=== PATIENT | female | born 1960 | race Caucasian/White ===

== ENCOUNTER 2023-01-25 07:45 | Emergency (ER) | payer OTHER ==
[~2023-01-25] VITALS: Ht 160 cm; Wt 73.6 kg
[2023-01-25 08:12] LABS: BASOPHILS 2.7 % (0-2); EOSINOPHILS 1.8 % (0-6); HEMATOCRIT 38.9 % (35.0-50.0); HEMOGLOBIN 12.5 g/dL (12.0-18.0); LYMPHOCYTES 15.9 % (24-44); MCHC 32.1 g/dl (30-36); MCV 80.8 fl (81-99); MONOCYTES 6.8 % (0-12); NEUTROPHILS 72.8 % (39-80); PLATELET COUNT 263 K/uL (140-440); RBC 4.81 M/ul (4.3-5.7); RDW 14.3 (10.5-15.0)
[2023-01-25 08:26] LABS: ALBUMIN 3.5 g/dL (3.4-5.0); ALBUMIN/GLOBULIN RATIO 0.83 (1.1-2.4); ANION GAP 14.7 (7-21); BILIRUBIN, TOTAL 0.4 ng/dL (0.2-1.0); BUN/CREATININE RATIO 23.68 (6.0-28.6); CALCIUM 9.4 mg/dL (8.5-10.1); CREATININE, SERUM 0.76 mg/dL (0.55-1.02); POTASSIUM 3.7 mmol/L (3.5-5.1); PROTEIN, TOTAL 7.7 g/dL (6.4-8.2)
[2023-01-25 09:02] LABS: INFLUENZA B NAA NEGATIVE (NEGATIVE); RESPIRATORY SYNCYTIAL VIR NAA NEGATIVE (NEGATIVE)
[2023-01-25] MEDS ORDERED: PREDNISONE20 MG PO (09:32)
[2023-01-25] MEDS ORDERED: VENTOLIN HFA18 GM INH (09:38)
[2023-01-25 10:40] VITALS: BP 108/64
== END 2023-01-25 10:35 | disposition home or self-care (01) ==
LOC: ED 07:45
PROVIDERS: Emergency Medicine
DX: J06.9 Acute upper respiratory infection, unspecified (principal); R06.1 Stridor; Z20.822 Contact with and (suspected) exposure to COVID-19
CPT/HCPCS: 36415; 71045; 80053; 85025; 87502; 94640; A9270; C9803; J1100; U0002

== ENCOUNTER 2024-02-27 12:50 | Day surgery (SDC) | payer OTHER ==
[~2024-02-27] VITALS: Ht 160 cm; Wt 70.8 kg
--- NOTE | ~2024-02-27 | OR ---
[facility] [address], [place] [address] Draft DATE OF OPERATION: 02/27/2024 SURGEON: Oneyda Carpio MD PREOPERATIVE DIAGNOSIS: Positive Cologuard test. POSTOPERATIVE DIAGNOSES: 1. Small polyp cecum. 2. Minimal diverticula of sigmoid. PROCEDURE: Total colonoscopy to cecum with cold morcellation polypectomy x1. ANESTHESIA: Intravenous sedation; fentanyl 150 mcg, Versed 6 mg. INDICATION: This 63-year-old white woman is a patient of DAMI Reece. She underwent cold guard testing which was found to be positive. She has no actual symptoms of bleeding, diarrhea, or constipation. She is admitted to undergo colonoscopy on the basis of her positive Cologuard test. She understands the risk of bleeding, infection, and perforation. FINDINGS: The prep was adequate with irrigation. A small polyp was noted of the cecum, which was excised. The remaining colon was normal except for a few scattered diverticula of the sigmoid colon. DESCRIPTION OF PROCEDURE: The patient was taken to the endoscopy suite and placed in the lateral decubitus position, given intravenous sedation to the point of slurred speech and nystagmus. Digital rectal examination was normal. Full cardiopulmonary monitoring was maintained. The Olympus video colonoscope was passed in the rectum and manipulated throughout the colon ultimately intubating the cecum itself. Irrigation was undertaken revealing a small adenomatous appearing polyp. Narrow-band imaging confirmed this as well. The lesion was excised with cold morcellation technique. The scope was then withdrawn and further examination with irrigation as necessary was undertaken showing no other intracolonic abnormalities, specifically no polyps, though she did have a few scattered diverticula of the sigmoid. Retroflexed view of the rectum was normal. Scope was PATIENT NAME: SANDRA LIRA OPERATIVE REPORT DATE OF : 60 REPORT #: [id number] PHYSICIAN: ONEYDA CARPIO MD PCP: LISETTE GUY NP REPORT IS CONFIDENTIAL AND NOT TO BE RELEASED WITHOUT AUTHORIZATION [address], [place] [address] Draft removed and the patient was taken to the recovery room in good condition. CONCLUDING DIAGNOSIS: Polyp x1. PLAN: Recommend repeat colonoscopy in 5 to 7 years, sooner if clinically indicated based on current recommendations. MD DAPHNE Lee/DEBRA /[id number] cc: DAMI Reece Copies: ~ PATIENT NAME: SANDRA LIRA OPERATIVE REPORT DATE OF : 60 REPORT #: [id number] PHYSICIAN: ONEYDA CARPIO MD PCP: LISETTE GUY NP REPORT IS CONFIDENTIAL AND NOT TO BE RELEASED WITHOUT AUTHORIZATION
[~2024-02-27 12:50] MED LIST: BETAMETHASONE D30 ML TOP; CLOBETASOL PROP50 ML TOP; IBLOOD GLUCOSE TEST STRIP 1 EA TEST VI PRN; LACTATED RINGER'S 1,000 ML IV SCH; LIDOCAINE HCL 1% 5 ML SDV INJ ONE; MIDAZOLAM HCL 5 MG/5 ML VIAL IV PRN; PREDNISONE20 MG PO; VENTOLIN HFA18 GM INH; fentaNYL citrate 100 MCG/2 ML VIAL IV PRN
[2024-02-27] MEDS ORDERED: fentaNYL citrate 100 MCG/2 ML VIAL ONE (12:56)
[2024-02-27] MEDS ORDERED: MIDAZOLAM HCL 5 MG/5 ML VIAL ONE (12:56)
[2024-02-27 13:14] VITALS: BP 124/53
[2024-02-27] MEDS ORDERED: ALLEGRA ALLERGY60 MG PO (13:16)
--- NOTE | 2024-02-27 14:49 | NUR ---
02/27/24 1449 Shira Kent 1438-PT ARRIVES TO PACU RESTING ON LT SIDE. PT AWAKENS EASILY TO VERBAL STIMULI, PT DENIES ANY PAIN OR NAUSEA, PT ENCOURAGED TO PASS GAS. VSS ON 2L VIA NC, REU. 1440-PT TITRATED TO RA, VS REMAIN STABLE, REU.
[2024-02-27 15:23] VITALS: BP 115/76
--- NOTE | 2024-02-29 12:41 | PATH ---
[facility] [address] [place], [place] [address] Signed SPECIMEN(S): A CECUM COLON POLYP SPECIMEN SOURCE: A. CECUM COLON POLYP CLINICAL HISTORY: Positive Cologuard, Diverticulosis FINAL PATHOLOGIC DIAGNOSIS: Cecum colon polyp: - Fragments of tubular adenoma, negative for high-grade dysplasia. NA MICROSCOPIC EXAMINATION: Histologic sections of all submitted blocks are examined by light microscopy. These findings, together with the gross examination, support the pathologic diagnosis. GROSS DESCRIPTION: The specimen, labeled and designated "Diamond, cecum colon polyp," is received in formalin and consists of three coy soft tissue fragments, ranging from 0.1-0.3 cm. Entirely submitted in (A1). VB (under the direct supervision of a pathologist) The Gross Description was prepared using a voice recognition system. The report was reviewed for accuracy; however, sound-alike word errors, addition and/or deletions may occur. If there is any question about this report, please contact Client Services. ADDITIONAL NOTES: Immunohistochemical and/or in situ hybridization studies if performed in this case included appropriate positive controls that reacted as expected. This test was developed and its performance characteristics determined by [facility]. It has not been cleared or approved by the U.S. Food and Drug Administration. The FDA has determined that such clearance or approval is not necessary. This test is used for clinical purposes. It should not be regarded as investigational or for research. [facility] is certified under the Clinical Laboratory Improvement Amendments of 1988 (CLIA) as qualified to perform high complexity clinical laboratory testing. PATIENT NAME: SANDRA LIRA PATHOLOGY DATE OF : 60 REPORT #: [id number] PHYSICIAN: RAMONITA NELSON PCP: LISETTE GUY NP REPORT IS CONFIDENTIAL AND NOT TO BE RELEASED WITHOUT AUTHORIZATION [address] [place], [place] [address] Signed PERFORMING LABORATORY: Technical component was performed by [facility], [address] [place] [address] (CLIA# [id number]). Professional interpretation was performed by [facility] - [facility], [address] [place] [address] (CLIA#: [id number]). Diagnostician: Zoila Kimble MD Pathologist Electronically Signed 02/29/2024 Copies: ~ PATIENT NAME: SANDRA LIRA PATHOLOGY DATE OF : 60 REPORT #: [id number] PHYSICIAN: RAMONITA NELSON PCP: LISETTE GUY NP REPORT IS CONFIDENTIAL AND NOT TO BE RELEASED WITHOUT AUTHORIZATION
== END 2024-02-27 15:20 | disposition home or self-care (01) ==
LOC: DS 12:50
PROVIDERS: ATTEND Surgery
PROC: 0DBH8ZX Excision of Cecum, Via Natural or Artificial Opening Endoscopic, Diagnostic (ICD-10-PCS; principal; 2024-02-27 14:00)
DX: D12.0 Benign neoplasm of cecum (principal); K57.30 Diverticulosis of large intestine without perforation or abscess without bleeding; J39.8 Other specified diseases of upper respiratory tract; Z78.0 Asymptomatic menopausal state; Z79.899 Other long term (current) drug therapy
CPT/HCPCS: 99153; G0500; J2250; J3010; J7121

== ENCOUNTER 2024-04-22 17:02 | Observation (INO) | payer OTHER ==
[~2024-04-22] VITALS: Ht 160 cm; Wt 74.0 kg
[~2024-04-22 17:02] MED LIST changes: +ALLEGRA ALLERG180 MG PO; -IBLOOD GLUCOSE TEST STRIP 1 EA TEST VI PRN; -LACTATED RINGER'S 1,000 ML IV SCH; -LIDOCAINE HCL 1% 5 ML SDV INJ ONE; -MIDAZOLAM HCL 5 MG/5 ML VIAL IV PRN; -fentaNYL citrate 100 MCG/2 ML VIAL IV PRN
[2024-04-22] MEDS ORDERED: HYDROmorphone HCL 1 MG/ML SYR IV PRN ×2 (17:30→19:15)
[2024-04-22] MEDS ORDERED: ondansetron HCL 4 MG/2 ML VIAL IV ONE (17:30)
[2024-04-22] MEDS ORDERED: KETAMINE in NS 50 MG/5 ML SYR IV ONE ×2 (17:45→18:15)
[2024-04-22] MEDS ORDERED: KETAMINE in NS 50 MG/5 ML SYR ONE (18:07)
[2024-04-22] MEDS ORDERED: HYDROCODONE/ACETA 5/325 TAB PO ONE (19:00)
[2024-04-22] MEDS ORDERED: HYDROCODONE BIT/ACETAMINOPHEN 5/325 MG 1 TAB HOME.PACK PO ONE (19:00)
[2024-04-22] MEDS ORDERED: ondansetron HCL 4 MG/2 ML VIAL ONE (19:03)
[2024-04-22 19:07] LABS: HEMOGLOBIN 12.7 g/dL (12.0-18.0); MCH 26.4 (27-36); MCHC 32.3 g/dl (30-36)
[2024-04-22 19:10] LABS: BASOPHILS 0.7 % (0-2); EOSINOPHILS 3.1 % (0-6); HEMATOCRIT 39.1 % (35.0-50.0); LYMPHOCYTES 31.7 % (24-44); MCV 81.6 fl (81-99); MONOCYTES 7.7 % (0-12); NEUTROPHILS 56.8 % (39-80); PLATELET COUNT 232 K/uL (140-440); RDW 14.1 (10.5-15.0)
[2024-04-22 19:14] LABS: ALBUMIN 3.5 g/dL (3.4-5.0); ALBUMIN/GLOBULIN RATIO 0.9 (1.1-2.4); ANION GAP 8.8 (7-21); BILIRUBIN, TOTAL 0.2 ng/dL (0.2-1.0); BUN/CREATININE RATIO 28.57 (6.0-28.6); CREATININE, SERUM 0.77 mg/dL (0.55-1.02); POTASSIUM 3.8 mmol/L (3.5-5.1); PROTEIN, TOTAL 7.4 g/dL (6.4-8.2)
[2024-04-22] MEDS ORDERED: ACETAMINOPHEN 325 MG TAB PO PRN (19:15)
[2024-04-22] MEDS ORDERED: DEXTROSE 5% - NACL 0.45% 1,000 ML IV SCH (19:15)
[2024-04-22] MEDS ORDERED: ondansetron HCL 4 MG/2 ML VIAL IV PRN (19:15)
[2024-04-22] MEDS ORDERED: LORazepam 2 MG/ML VIAL IV PRN (19:30)
[2024-04-22 20:06] VITALS: BP 136/82
--- NOTE | 2024-04-22 20:39 | NUR ---
ADMISSION COMPLETE. PT DRANK WATER, GOT A PHONE CALL AND THEN VOMITED 50 ML. SAID THE WATER TASTED GOOD BUT MADE HER VOMIT. DR SARAVIA NOTIFIED, ANTIMETIC NOT AVAILABLE, NEW ORDER RECEIVED.
--- NOTE | 2024-04-22 20:41 | NUR ---
1950 - ADMITTED TO ROOM 116 VIA STRETCHER FROM ED. HELPED WITH TRANSFERRING. DROWSY BUT ALERT AND ORIENTED AFTER A FEW MINUTES. ON ROOM AIR, CLEAR LUNGS, R LEG WITH SPLINT 04/22 PLACED IN ED. ELEVATED WITH PILLOWS. PT COOPERATIVEW ITH ADMIT WUESTIONS AND ASSESSMENTS. PANTS WERE CUT WITH HER PERMISSION. CASTRO MAYO APPLIED NURSING JUDGEMENT PT IS DROWSY, RECEIVED KETAMINE CONSCIOUS SEDATION PRIOR TO ADMIT. GOOD CMS R LEG, ELEVATED WITH PILLOWS. SL LAC PATENT, IVF INFUSING. HOB ELEVATED. CPOX ON PER NURSING JUDGEMENT. NO C/O PAIN. AWARE OF NPO STATUS AFTER MIDNIGHT.
[2024-04-22] MEDS ORDERED: PROCHLORPERAZINE EDISYLATE 10 MG/2 ML VIAL IV PRN (20:45)
--- NOTE | 2024-04-22 21:08 | NUR ---
IN TO ASSESS NEED FOR NAUSEA MEDICATION, PT RESTING WITH EYES CLOSED, WAKES EASILY, STATES "NO, I THINK IM OKAY FOR NOW" WHEN ASKED IF SHE NEEDS NAUSEA MED. WHEN ASKED REGARDING PAIN SHE ALSO STATES "IM OKAY FOR NOW". NO REQUESTS AT THIS TIME, CALL LIGHT IN REACH.
--- NOTE | 2024-04-22 22:18 | NUR ---
IV ALARMING, PT BENT ARM. NOTED NO URINE IN THE SUCTION CANNISTER, (KIRSTEN), SHE SAID OH, THATS RIGHT, WHEN PT ARRIVED TO FLOOR SHE MENTIONED SHE HAD TO PEE. SHE STATED SHE DIDN'T HAVE THE URGE. NO OTHER NEEDS. CURRENTLY ON HER PHONE.
--- NOTE | 2024-04-22 23:48 | NUR ---
resting, eyes closed, IVF infusing, CPOX in place, R leg elevated
[2024-04-23] VITALS (9 sets, daily range): BP systolic 104–121; BP diastolic 68–79
--- NOTE | 2024-04-23 01:17 | NUR ---
awake, r leg erlevated c/o r leg pain, medicated with dilaudid 0.5mg iv, inc of urine, skin care, clean attend in place. IVf infusign w/o problems
--- NOTE | 2024-04-23 06:38 | NUR ---
Dr García in room visiting with pt about surgery. Consent signed.
--- NOTE | 2024-04-23 06:59 | NUR ---
MILLING/POLISHING OPERATOR GOT PT UP TO THE BSC. PT WAS ABLE TO KEEP HER WT ON HER LEFT SIDE DURING TRANSFER. MILLING/POLISHING OPERATOR HELPED HER BACK INTO BED AND LEFT PT WITH CALL LIGHT WITHING REACH.
[2024-04-23] MEDS ORDERED: TRANEXAMIC ACID 2,000 MG in SODIUM CHLORIDE 0.9% 100 ML IV SCH (07:00)
[2024-04-23] MEDS ORDERED: CEFAZOLIN SODIUM 2 GM/20 ML SYR IV SCH (07:00)
[2024-04-23] MEDS ORDERED: TRANEXAMIC ACID IN NACL,ISO-OS 1,000 MG/100 ML PIGGYBACK IV SCH (07:00)
--- NOTE | 2024-04-23 07:27 | NUR ---
REPORT FROM GISEL HANSEN.
--- NOTE | 2024-04-23 09:11 | NUR ---
IN TO DO PRESURGICAL WIPEDOWN. NEW GOWN PROVIDED. CALL LIGHT IN REACH. NO FURTHER NEEDS AT THIS TIME.
[2024-04-23] MEDS ORDERED: TRANEXAMIC ACID IN NACL,ISO-OS 100 ML IV ONE (09:19)
[2024-04-23] MEDS ORDERED: LACTATED RINGER'S 1,000 ML IV ONE (09:26)
[2024-04-23] MEDS ORDERED: FAMOTIDINE 20 MG/ 2 ML VIAL ONE (09:26)
[2024-04-23] MEDS ORDERED: fentaNYL citrate 100 MCG/2 ML VIAL ONE (09:26)
[2024-04-23] MEDS ORDERED: KETOROLAC TROMETHAMINE 30 MG/ML VIAL ONE (09:26)
[2024-04-23] MEDS ORDERED: MIDAZOLAM HCL 2 MG/2 ML VIAL ONE (09:26)
[2024-04-23] MEDS ORDERED: propofoL 200 MG/20 ML VIAL ONE ×2 (09:26→09:44)
[2024-04-23] MEDS ORDERED: KETAMINE in NS 50 MG/5 ML SYR ONE (09:26)
[2024-04-23] MEDS ORDERED: DEXAMETHASONE SOD PHOS 4 MG/ML VIAL ONE (09:26)
[2024-04-23] MEDS ORDERED: PROCHLORPERAZINE EDISYLATE 10 MG/2 ML VIAL IV PRN (09:30)
[2024-04-23] MEDS ORDERED: METOCLOPRAMIDE HCL 10 MG/2 ML SDV IV PRN (09:30)
[2024-04-23] MEDS ORDERED: ondansetron HCL 4 MG/2 ML VIAL IV PRN (09:30)
[2024-04-23] MEDS ORDERED: droPERidol 5 MG/2 ML VIAL IV PRN (09:30)
[2024-04-23] MEDS ORDERED: fentaNYL citrate 50 MCG/ML SDV IV PRN (09:30)
[2024-04-23] MEDS ORDERED: MORPHINE SULFATE 10 MG/ML VIAL IV PRN (09:30)
[2024-04-23] MEDS ORDERED: IBLOOD GLUCOSE TEST STRIP 1 EA TEST VI PRN (09:30)
[2024-04-23] MEDS ORDERED: NALOXONE HCL 0.4 MG SYR IV PRN (09:30)
--- NOTE | 2024-04-23 09:33 | NUR ---
MORNING ASSESSMENT IS COMPLETE, PATIENT IS READY FOR SURGERY. PATIENT RATES RIGHT ANKLE PAIN 4/10 BUT DENIES WANTING MEDICATIONS DUE TO IT CAUSING NAUSEA. SCD MACHINE AND ONE LEGGING ON BED. LR AND SURGERY TUBING HANGING ON BED. ANCEF AND TRANEXAMIC ACID HANGING ON BED. NO OTHER NEEDS AT THIS TIME.
[2024-04-23] MEDS ORDERED: LIDOCAINE HCL 2% 5 ML SDV ONE (09:47)
--- NOTE | 2024-04-23 11:12 | NUR ---
PATIENT TO SURGERY.
[2024-04-23] MEDS ORDERED: SENNOSIDES 1 TAB PO SCH (11:19)
[2024-04-23] MEDS ORDERED: KETOROLAC TROMETHAMINE 15 MG/ML VIAL IV PRN (11:30)
[2024-04-23] MEDS ORDERED: HYDROCODONE/ACETA 7.5/325 TAB PO PRN (11:30)
[2024-04-23] MEDS ORDERED: droPERidol 5 MG/2 ML VIAL ONE (11:49)
[2024-04-23] MEDS ORDERED: Ropivacaine HCl 0.5% 30 ML VIAL ONE (12:24)
[2024-04-23] MEDS ORDERED: ASPIRIN325 MG PO (12:45)
[2024-04-23] MEDS ORDERED: DICLOFENAC SODI75 MG PO (12:46)
[2024-04-23] MEDS ORDERED: SENNA LAX8.6 MG PO (12:46)
[2024-04-23] MEDS ORDERED: HYDROCODON-ACE1 EA11 PO (12:46)
--- NOTE | 2024-04-23 12:55 | NUR ---
04/23/24 1255 Brittany Torrez PATIENT OPENS HER EYES. ORAL AIRWAY IS REMOVED. NASAL AIRWAY REMAINS IN PLACE.
--- NOTE | 2024-04-23 13:39 | NUR ---
PT NOT AVAILABLE FOR VISIT. PROVIDED PRAYER.
--- NOTE | 2024-04-23 13:46 | NUR ---
REPORT FROM GISEL FLORES. PATIENT BACK FROM SURGERY, POST OP VITALS STARTED AT 1330. PATIENT IS ON ROOM AIR AND 96%, BEDSIDE PULSE OX IS ON. VITALS ARE STABLE. RIGHT POST OP BOOT IS ON, RIGHT LEG IS ELEVATED ON PILLOWS, TOES ARE WARM, SCD TO LEFT LEG. ICE IS PRESENT ON RIGHT ANKLE. PATIENT IS SLEEPING WITH REGULAR RESPIRATIONS, ASSESSMENT IS COMPLETE.
--- NOTE | 2024-04-23 14:28 | NUR ---
SECOND SET OF POST OP VITALS COMPLETE, VITALS STABLE, 98% ON ROOM AIR. PATIENT DENIES PAIN. STILL REMAINS SLEEPY, EASILY WOKE.
--- NOTE | 2024-04-23 14:43 | NUR ---
UR CLINICAL REVIEW: [facility] EXTENDED STAY FOR ORIF OF THE ANKLE MEDDATA EXTENDED STAY 04/23/24 ORDER MATCHES REG NO AUTH REQUIRED PER GUIDELINES DISCHARGE TO HOME WHEN STABLE 04/24/23
--- NOTE | 2024-04-23 15:28 | NUR ---
PATIENT REMAINS SLEEPY, VITALS ARE STABLE, PATIENT IS EATING JELLO AND CRACKERS. PATIENT DENIES PAIN.
--- NOTE | 2024-04-23 15:44 | NUR ---
LAST SET OF POST OP VITALS COMPLETE. PATIENT TOLERATED CRACKERS AND JELLO, REGULAR DINNER PLANNED FOR TONIGHT. PATIENT CONTINUES TO DENY PAIN. NEW ICE PACK TO RIGHT ANKLE. TOES ARE WARM. WARM BLANKETS PROVIDED.
--- NOTE | 2024-04-23 19:27 | EKG ---
[facility] [address] [facility] [place], [place] [address] Signed Normal sinus rhythm Low voltage QRS Nonspecific ST and T wave abnormality Abnormal ECG No previous ECGs available Confirmed by Renetta Hill MD ([id number]) on 04/23/2024 7:27:44 PM Electronically Signed By: RENETTA HILL MD 04/23/241926 PATIENT NAME: SANDRA LIRA Electrocardiogram DATE OF : 60 PHYSICIAN: RENETTA HILL MD REPORT #: [id number] REPORT IS CONFIDENTIAL AND NOT TO BE RELEASED WITHOUT AUTHORIZATION
[2024-04-23] MEDS ORDERED: DICLOFENAC SOD 75 MG TABEC PO SCH (21:00)
[2024-04-23] MEDS ORDERED: ASPIRIN 325 MG TAB PO SCH (21:00)
--- NOTE | 2024-04-23 22:10 | NUR ---
Drowsy, awakens easily, on room air, clear lungs, LBM 04/23. SL patent. was medicated with scheduled voltaren. R leg elevated with pillows, ortho boot in place, dressing cdi, ice to area. moves toes. toe touch weight bearing, Up to BSC, voided, back to bed, tolerated wel.
[2024-04-24 01:51] VITALS: BP 110/58
--- NOTE | 2024-04-24 02:16 | NUR ---
cooperative with assessment and vitals, awakens easily, denies c.o pain or n/v. R leg elevated with pillows, ortho boot in place, fresh ice to area, good CMS
--- NOTE | 2024-04-24 04:36 | NUR ---
Pt resting, eyes closed, no s/sx distress. R leg elevated in pillows, ice to area.
[2024-04-24 05:56] VITALS: BP 126/71
--- NOTE | 2024-04-24 08:02 | NUR ---
PATIENT IN BED AT THIS TIME. MACHINE LACER WENT INTO PATIENTS ROOM FORU HOURLY ROUNDS. CALL LIGHT WITHIN, NO FURTHER NEEDS AT THIS TIME.
--- NOTE | 2024-04-24 08:12 | NUR ---
PT AWAKE AND DENIES CONCERNS REGARDING ANKLE. CMS INTACT, TOES WARM AND PINK. RATES PAIN A 0\10 RIGHT NOW BUT IS AWARE PHYSICAL THERAPY IS COMING. DAUGHTER IS ON HER WAY FROM [place] TO TAKE HER TO HER HOME.
--- NOTE | 2024-04-24 09:29 | NUR ---
CALLED DR SARAVIA REFRIGERATING ENGINEER HEAD NUMBER, RINGS AND THEN NOTHING. WILL TRY AGAIN LATER.
[2024-04-24 09:31] VITALS: BP 130/73
--- NOTE | 2024-04-24 10:45 | NUR ---
Spoke with Catherine. She plans on discharging today to her daughters home in [place]. Daughter as had ankle surgery in the past and is picking up DME when she arrives today from [place]. She will get a walker. She has a scooter for mom to use. Pt denies any other needs at this time. Pt denies any financial needs. Home when daughter arrives around 1 pm today.
--- NOTE | 2024-04-24 11:30 | NUR ---
ROUNDED WITH DR SARAVIA. PT FLUSHED BUT STATED SHE JUST ATE [employer]SE [employer] PUDDING AND IT DOES THAT. OK TO DC WHEN DTR GETS HERE. 10 DAY FOLLOW UP FOR STITCH REMOVAL AND THEN 30 DAYS FOR CHECK UP.
--- NOTE | 2024-04-24 11:39 | OR ---
[facility] [address] [facility] [place], [place] [address] Signed DATE OF OPERATION: 04/23/2024 SURGEON: Maxine García MD PREOPERATIVE DIAGNOSIS: Right trimalleolar fracture, dislocation of ankle. POSTOPERATIVE DIAGNOSIS: Right trimalleolar fracture, dislocation of ankle. PROCEDURES PERFORMED: Open reduction and internal fixation of bimalleolar ankle. NUCLEAR POWER REACTOR OPERATOR: Lynda Sneed PA-C. Lynda was present and critical for all portions of procedure. ANESTHESIA: Spinal. BLOOD LOSS: None. TOURNIQUET TIME: 48 minutes. IMPLANTS: Seven hole 1/3rd tubular plate with eight screws laterally and two Synthes headless screws medially. BRIEF HISTORY: Catherine is a 63-year-old female who was going down her back steps and slipped on the wet steps and landed on her ankle awkwardly. She had a fracture dislocation that was reduced in the ER and due to the unstable nature I asked them to keep her overnight so we can fix it today. Risks, benefits, and alternatives were discussed with her and she understood and wished to proceed. DESCRIPTION OF PROCEDURE: Once consent was obtained, she was taken to the operating room. After adequate anesthesia she was placed on the OR table with a hip bump. A well-padded proximal thigh Electronically Signed By: MAXINE GARCÍA MD 04/24/24 1139 PATIENT NAME: CATHERINE LIRA OPERATIVE REPORT DATE OF : 60 REPORT #: [id number] PHYSICIAN: MAXINE GARCÍA MD PCP: LISETTE GUY NP REPORT IS CONFIDENTIAL AND NOT TO BE RELEASED WITHOUT AUTHORIZATION [facility] [address] [place], [place] [address] Signed tourniquet was placed. The leg was then prepped and draped in a standard sterile fashion, exsanguinated using an Esmarch bandage and tourniquet inflated to 250 mmHg. The lateral side was approached first through a standard lateral incision was carried through skin and subcutaneous tissue. Periosteum was incised and elevated anteriorly and posteriorly. The fracture was distracted and cleaned of debris and reduced and cross clamped. A standard AO lag screw was then placed from anterior to posterior with the clamp being removed. The seven hole plate was then fit to this lateral side of the fibula and contoured distally. Two distal locking screws and five nonlocking screws were placed in total. The fracture was quite stable after this. The wound was then copiously irrigated with normal saline, closed in layers with 2-0 Monocryl and librado. Medial side was approached through a curvilinear incision and carried through skin and subcutaneous tissue. It was a quite large lateral piece that was reduced after again distracting including the debris. The guide pins for the headless screw were then placed from the tip of the malleolus across the fracture into the body of the tibia. These were then drilled and appropriate length screws were placed. Excellent fixation was obtained. The final radiograph showed good reduction and alignment of the mortise. The posterior fragment was felt to be not large enough to require fixation. The wounds on the medial side were then cleaned and closed with 3-0 Monocryl and librado. Both wounds were then dressed with Allevyn and Jeffrey wrap. She was placed in a fracture boot, taken to recovery room in satisfactory condition. All sponge, needle, and instrument counts were correct. Maxine García MD BA/DEBRA /[id number] Copies: ~ Electronically Signed By: MAXINE GARCÍA MD 04/24/24 1139 PATIENT NAME: CATHERINE LIRA OPERATIVE REPORT DATE OF : 60 REPORT #: [id number] PHYSICIAN: MAXINE GARCÍA MD PCP: LISETTE GUY NP REPORT IS CONFIDENTIAL AND NOT TO BE RELEASED WITHOUT AUTHORIZATION
--- NOTE | 2024-04-24 12:11 | NUR ---
MED REC COMPLETE
== END 2024-04-24 13:55 | disposition home or self-care (01) ==
LOC: ED 17:02 → MS 17:03
PROVIDERS: Emergency Medicine; ADMIT Specialist; ATTEND Specialist
PROC: 0QSJ04Z Reposition Right Fibula with Internal Fixation Device, Open Approach (ICD-10-PCS; principal; 2024-04-23 12:15)
DX: S82.851A Displaced trimalleolar fracture of right lower leg, initial encounter for closed fracture (principal); L40.9 Psoriasis, unspecified; Z79.82 Long term (current) use of aspirin; W01.0XXA Fall on same level from slipping, tripping and stumbling without subsequent striking against object, initial encounter
CPT/HCPCS: 01480; 27818; 36415; 64445; 64447; 73600; 80053; 85025; 93005; 93010; 96376; 97161; 99152; 99284-25; C1713; C1769; G0378; J0690; J0780; J1100; J1171; J1790; J1885; J2003; J2250; J2405; J2704; J2795; J3010; J3490; J7042; J7121